=== PATIENT | female | born 1955 | race Two or more races ===

== ENCOUNTER 2024-11-08 17:50 | Emergency (ER) | payer MEDICARE ==
[~2024-11-08] VITALS: Ht 162.6 cm; Wt 70.3 kg
[2024-11-08 18:40] VITALS: BP 123/77; TEMP 98; O2SAT 99
== END 2024-11-08 18:41 | disposition home or self-care (01) ==
LOC: ER 17:50
DX: H93.12 Tinnitus, left ear (principal); H92.02 Otalgia, left ear; E11.9 Type 2 diabetes mellitus without complications; E78.5 Hyperlipidemia, unspecified
CPT/HCPCS: A4606; A4663